=== PATIENT | female | born 1970 | race Caucasian/White ===

== ENCOUNTER 2016-10-09 03:40 | Emergency (ER) | payer MEDICAID ==
[~2016-10-09] VITALS: Ht 154.9 cm; Wt 61.7 kg
[2016-10-09 03:40] VITALS: BP_SYST 114
[2016-10-09] MEDS ORDERED: NACL 0.9% 1,000 ML IV ONE (04:07)
[2016-10-09] MEDS ORDERED: ASPIRIN 81 MG TAB.CHEW PO ONE (04:15)
[2016-10-09] MEDS ORDERED: LORazepam 2 MG/ML VIAL (FOR ER USE) IVP ONE (04:15)
[2016-10-09 04:40] LABS: BASOPHILS % (AUTO) 0.2 % (0.0-2.0); HEMATOCRIT 30.8 % (36-48); HEMOGLOBIN 9.9 g/dL (12.0-16.0); LYMPHOCYTES # (AUTO) 0.9 K/uL (1.0-5.5); LYMPHOCYTES % (AUTO) 8.4 % (20.5-51.5); MEAN CORPUSCULAR HEMOGLOBIN 23 pg (27-31); MEAN CORPUSCULAR HGB CONC 32 % (32-36); MEAN CORPUSCULAR VOLUME 73 fL (79.0-98.0); MONOCYTES # (AUTO) 0.1 K/uL (0.0-1.0); MONOCYTES % (AUTO) 0.6 % (1.7-9.3); NEUTROPHILS # (AUTO) 9.5 K/uL (1.8-7.7); NEUTROPHILS % (AUTO) 90.8 % (40.0-70.0); PLATELET COUNT (AUTO) 368 K/uL (130-430); RED BLOOD CELL COUNT(AUTO) 4.22 MIL/uL (4.2-6.2); RED CELL DISTRIBUTION WIDTH 16.3 % (9.0-15.0); WHITE BLOOD COUNT (AUTO) 10.5 K/uL (4.8-10.8)
[2016-10-09 04:46] LABS: ANION GAP 10 (5-15); CALCIUM 8.8 mg/dL (8.4-11.0); CHLORIDE 104 mmol/L (98-107); CREATININE 0.58 mg/dL (0.55-1.30); GLUCOSE 145 mg/dL (70-99); SODIUM SERUM 138 mmol/L (136-145); UREA NITROGEN, BLOOD 15 mg/dL (8-21)
[2016-10-09 04:51] LABS: GFR AFRICAN AMERICAN 143 mL/min (>90)
[2016-10-09 04:52] LABS: INR 0.9 (0.8-1.2); PROTHROMBIN TIME 10.3 SECS (9.5-12.5)
[2016-10-09 04:55] LABS: ALANINE AMINOTRANSFERASE 17 U/L (12-78); ALBUMIN 3.8 g/dL (3.4-4.8); ASPARTATE AMINOTRANSFERASE 14 U/L (10-37); TOTAL BILIRUBIN 0.3 mg/dL (0.0-1.0); TOTAL PROTEIN, SERUM 7.6 g/dL (6.4-8.3)
[2016-10-09 06:37] VITALS: BP_SYST 110
== END 2016-10-09 06:37 | disposition home or self-care (01) ==
LOC: SED 03:40
DX: F41.9 Anxiety disorder, unspecified (principal)
CPT/HCPCS: 36415; 71010; 80053; 84484; 85025; 85610; 85730; 93005; 96361; 96374; 99285; J2060; J7030

== ENCOUNTER 2017-02-03 07:14 | Emergency (ER) | payer MEDICAID ==
[~2017-02-03] VITALS: Ht 154.9 cm; Wt 61.2 kg
[2017-02-03 07:24] VITALS: BP_SYST 123
--- NOTE | 2017-02-03 07:30 | NUR ---
Patient to ER bed 7 to gown for evaluation. Side rails up. Report given to Guero PERRY.
--- NOTE | 2017-02-03 07:33 | NUR ---
Pt states that she has been dizzy and nauseaous since waking this morning, mild abd discomfort. States that she feels like the room is spinning.
--- NOTE | 2017-02-03 07:34 | NUR ---
ER Dr. Rooney at bedside examining patient.
[2017-02-03] MEDS ORDERED: MECLIZINE HCL 25 MG TABLET (ANITVERT) PO ONE (07:45)
[2017-02-03] MEDS ORDERED: ONDANSETRON HCL 4 MG/2 ML VIAL IVP ONE ×2 (07:45→10:30)
[2017-02-03] MEDS ORDERED: NACL 0.9% 1,000 ML IV ONE (07:45)
--- NOTE | 2017-02-03 07:45 | NUR ---
Patient reports having vomited emesis was flushed and cannot be visualized.
[2017-02-03 08:00] LABS: BASOPHILS # (AUTO) 0.1 K/uL (0.0-0.2); BASOPHILS % (AUTO) 1.1 % (0.0-2.0); EOSINOPHILS # (AUTO) 0.2 K/uL (0.0-0.4); EOSINOPHILS % (AUTO) 3.4 % (0.0-4.0); HEMATOCRIT 28.9 % (36-48); HEMOGLOBIN 9.2 g/dL (12.0-16.0); LYMPHOCYTES # (AUTO) 1.9 K/uL (1.0-5.5); LYMPHOCYTES % (AUTO) 29.3 % (20.5-51.5); MEAN CORPUSCULAR HEMOGLOBIN 24 pg (27-31); MEAN CORPUSCULAR HGB CONC 32 % (32-36); MEAN CORPUSCULAR VOLUME 76 fL (79.0-98.0); MONOCYTES # (AUTO) 0.5 K/uL (0.0-1.0); MONOCYTES % (AUTO) 7.4 % (1.7-9.3); NEUTROPHILS # (AUTO) 3.6 K/uL (1.8-7.7); NEUTROPHILS % (AUTO) 58.8 % (40.0-70.0); PLATELET COUNT (AUTO) 344 K/uL (130-430); RED BLOOD CELL COUNT(AUTO) 3.81 MIL/uL (4.2-6.2); RED CELL DISTRIBUTION WIDTH 14.9 % (9.0-15.0); WHITE BLOOD COUNT (AUTO) 6.3 K/uL (4.8-10.8)
--- NOTE | 2017-02-03 08:05 | NUR ---
Off unit for CT and CXR. Dr. Rooney is aware that pt has been unable to produce urine, states to procede wiht sheilding.
[2017-02-03 08:14] LABS: CALCIUM 8.4 mg/dL (8.4-11.0); CREATININE 0.61 mg/dL (0.55-1.30); POTASSIUM 3.5 mmol/L (3.5-5.1)
[2017-02-03 08:21] LABS: INR 0.9 (0.8-1.2); PROTHROMBIN TIME 10.2 SECS (9.5-12.5)
[2017-02-03 08:27] LABS: ALBUMIN 3.4 g/dL (3.4-4.8); TOTAL BILIRUBIN 0.2 mg/dL (0.0-1.0)
--- NOTE | 2017-02-03 09:00 | NUR ---
Urine collection done HCG(-). Patient transported to radiology via , accompanied by rad staff.
--- NOTE | 2017-02-03 09:20 | NUR ---
Pt returned from rad dept tolerated well.
[2017-02-03 09:49] LABS: BILIRUBIN,URINE NEGATIVE (NEGATIVE); BLOOD, URINE 3+ (NEGATIVE); CLARITY/URINE HAZY (CLEAR); COLOR,URINE YELLOW (YELLOW); GLUCOSE,URINE NEGATIVE (NEGATIVE); KETONES,URINE NEGATIVE (NEGATIVE); LEUKOCYTE ESTERASE ,URINE NEGATIVE (NEGATIVE); NITRITE, URINE NEGATIVE (NEGATIVE); PROTEIN URINE NEGATIVE (NEGATIVE); UROBILINOGEN,URINE 0.2 (0.2-1.0)
--- NOTE | 2017-02-03 09:50 | NUR ---
Pt ambualted to restroom w/o assist steady gait.Pt reports dizziness resolving.
[2017-02-03 09:58] LABS: BACTERIA,URINE FEW /HPF (None Seen); WBC,URINE 0-3 /HPF (0-3)
[2017-02-03 09:59] LABS: MUCUS,URINE 1+ /LPF (None Seen)
--- NOTE | 2017-02-03 10:30 | NUR ---
Pt medicated for nausea.
--- NOTE | 2017-02-03 10:50 | NUR ---
Pt reports nausea resolved.
[2017-02-03 11:00] VITALS: BP_SYST 120
--- NOTE | 2017-02-03 11:00 | NUR ---
Patient given written and verbal discharge instructions and verbalizes understanding. ER MD discussed with patient the results and treatment provided. Patient in stable condition. ID arm band removed. IV catheter removed intact and dressing applied, no active bleeding. Rx of antivert and zofran given. Patient educated on pain management and to follow up with PMD. Pain Scale 0. Opportunity for questions provided and answered.
== END 2017-02-03 11:00 | disposition home or self-care (01) ==
LOC: SED 07:14
DX: R42 Dizziness and giddiness (principal)
CPT/HCPCS: 36415; 70450; 71010; 80053; 81000; 84484; 85025; 85610; 85730; 96361; 96374; 96376; 99285; J2405; J7030; J8597